=== PATIENT | male | born 1960 | race Caucasian/White ===

== ENCOUNTER 2021-09-20 17:37 | Emergency (ER) | payer OTHER ==
[~2021-09-20] VITALS: Ht 175.3 cm; Wt 95.2 kg
[2021-09-20] MEDS ORDERED: ASPIRIN81 MG PO ×2 (17:56→17:57)
== END 2021-09-20 19:38 | disposition home or self-care (01) ==
LOC: ED 17:37
DX: S22.019A Unspecified fracture of first thoracic vertebra, initial encounter for closed fracture (principal); S22.029A Unspecified fracture of second thoracic vertebra, initial encounter for closed fracture; S00.01XA Abrasion of scalp, initial encounter; Y04.8XXA Assault by other bodily force, initial encounter; Z79.82 Long term (current) use of aspirin
CPT/HCPCS: 70450; 72125; 99284-25; G0480